=== PATIENT | male | born 1945 | race African-American/Black ===

== ENCOUNTER 2017-03-05 06:21 | Observation (INO) | payer MEDICARE ==
--- NOTE | 2017-03-02 01:52 | HP ---
CC: Dr. Jean Schwartz * HISTORY AND PHYSICAL: DATE OF PLANNED ADMISSION AND SURGERY: 03/05/17 HISTORY OF PRESENT ILLNESS: Mr. Sanchez is a 71-year-old male, who is admitted with prostate enlargement and urinary retention for transurethral resection of the prostate. Please refer to the full history and physical regarding his medical condition dictated by Dr. Schwartz, his primary care physician, and dated 02/22/17. Also, please refer to the Cardiology consultation by Dr. Dalton dated . Mr. Sanchez is a 71-year-old diabetic, whom I have been following for the last 7 years because of the prostate enlargement and bladder outlet obstruction. He has been maintained on finasteride and tamsulosin. More recently, he started having increasing voiding symptoms and developed recurrent urinary tract infections. Workup showed a urethral stricture in the bulbar urethra, and large obstructing prostate. Four days before this planned admission, he went into urinary retention and had a Suarez catheter placed draining 600 cc of clear urine. The patient has had urodynamic studies, which showed normal bladder capacity and a high voiding detrusor pressure consistent with bladder outlet obstruction and indicating good bladder function. Because of the above history and findings, the failure of medical treatment, and the urinary retention, he is admitted for transurethral resection of the prostate. PAST MEDICAL HISTORY AND SYSTEM REVIEW: Detailed in the notes of Dr. Schwartz and Dr. Dalton. The patient had a full cardiac workup including cardiac catheterization and showed patent saphenous venous grafts and good cardiac function. MEDICATIONS: The list of his medication is included in his history and physical. ALLERGIES: The patient has no allergies to medications. FAMILY HISTORY: Relevant for his brother who has prostate carcinoma and has developed castrate-resistant disease. PHYSICAL EXAMINATION GENERAL: Obese male who looks his age. VITAL SIGNS: Blood pressure 160/90, pulse of 60. LUNGS: Clear. HEART: Regular and rhythmic. No murmurs. ABDOMEN: Soft, obese. No masses, no tenderness, and no CVA tenderness. EXTERNAL GENITALIA: Normal. He is uncircumcised. No penile lesions. Normal testes and no hernias. RECTAL: Showed an enlarged but non-suspicious prostate. IMPRESSION: 1. Urinary retention due to prostate enlargement and urethral stricture, failed medical treatment. Normal detrusor function on urodynamics studies. 2. Diabetes mellitus. 3. Coronary artery disease. PLAN: For cystoscopy, internal urethrotomy, and transurethral resection of the prostate. I discussed the operation in detail with the patient. Some of the potential complications including infection, hematuria, recurrent retention, and recurrent strictures were discussed. All his questions were answered. The patient was started 4 days prior to his admission on Cipro in preparation for his surgery. Urine culture is pending. [id number]/[facility] #: [id number] ESTER
[~2017-03-05 06:21] MED LIST: Buffered Lidocaine 0.9% SYRIN* 5 ML/SYR SYRINGE INTRADERM ONE
[2017-03-05] MEDS ORDERED: cefTRIAXone(*) 2 GM ADDV.VIAL IVPB ONE (06:24)
[2017-03-05] MEDS ORDERED: Buffered Lidocaine 0.9% SYRIN* 5 ML/SYR SYRINGE ONE (06:46)
[2017-03-05] MEDS ORDERED: Insulin REGULAR(*) 1 UNITS UNIT ONE ×2 (07:21→09:35)
[2017-03-05] MEDS ORDERED: Levofloxacin 750 MG IVPREMIX(* 750 MG/150 ML BAG ONE (07:53)
[2017-03-05] MEDS ORDERED: fentaNYL* 50 MCG/ML 2 ML VIAL (100 MCG VIAL) ONE (08:04)
[2017-03-05] MEDS ORDERED: Midazolam* 1 MG/ML 5 ML VIAL (5 MG) ONE (08:04)
[2017-03-05] MEDS ORDERED: DiMENhydriNATE IV* 50 MG/ML VIAL IV PUSH PRN (08:56)
[2017-03-05] MEDS ORDERED: fentaNYL* 50 MCG/ML 2 ML VIAL (100 MCG VIAL) IV PRN (08:56)
[2017-03-05] MEDS ORDERED: Ondansetron INJ* 2 MG/ML VIAL IV PRN (08:56)
[2017-03-05] MEDS ORDERED: oxyCODONE/Acetamin 5/325 MG* TAB PO PRN (12:35)
[2017-03-05] MEDS ORDERED: Oxybutynin TAB* 5 MG PO PRN (12:36)
[2017-03-05] MEDS ORDERED: SULINDAC 200 MG PO PRN (12:49)
[2017-03-05] MEDS ORDERED: Nitroglycerin TAB 0.4 MG* 0.4 MG TAB SL PRN (12:51)
[2017-03-05] MEDS ORDERED: oxyCODONE SR TAB(*) 10 MG TAB.SR PO PRN (12:52)
[2017-03-05] MEDS: Insulin REGULAR(*) 1 UNITS UNIT SUBCUT SCH ×2 (17:35→20:52)
[2017-03-05] MEDS: metFORMIN* 500 MG TAB PO SCH (20:45)
[2017-03-05] MEDS: Lisinopril TAB* 10 MG PO SCH (20:45)
[2017-03-05] MEDS ORDERED: Atorvastatin* 20 MG TAB PO SCH (21:00)
[2017-03-05] MEDS: oxyCODONE/Acetamin 5/325 MG* TAB PO PRN (23:47)
[2017-03-06] MEDS ORDERED: Dextrose 50% Syringe 50 ML* 25 GM/50 ML SYRINGE IV PUSH PRN (00:04)
--- NOTE | 2017-03-06 05:35 | OP ---
CC: Dr. Schwartz* DATE OF OPERATION: 03/05/17 - ROOM #331 DATE OF : 47 SURGEON: Percy Urbina MD ANESTHESIOLOGIST: Adan Vicente MD ANESTHESIA: Spinal. PRE-OP DIAGNOSES: 1. Benign prostatic hyperplasia. 2. Urethral stricture. 3. Urinary retention due to above. POST-OP DIAGNOSES: 1. Benign prostatic hyperplasia. 2. Urethral stricture. 3. Urinary retention due to above. OPERATIVE PROCEDURE: 1. Cystoscopy. 2. Direct internal optic urethrotomy. 3. Transurethral resection of the prostate. INDICATIONS: Mr. Sanchez is a 71-year-old white male with long history of bladder outlet obstruction, who has been maintained on tamsulosin and finasteride. He has been becoming more symptomatic with increasing frequency, slow stream, and increased postvoid residual. Cystoscopy showed a bulbar urethral stricture and a large-obstructing prostate and bladder trabeculations. Urodynamic studies confirmed good detrusor function. The patient went into urinary retention last week, and has been on catheter drainage. He is now admitted for the above procedure. PATHOLOGY AT CYSTOSCOPY: The penile urethra looked normal. There was a stricture located in the bulbar urethra about 1 to 2 cm distal to the external sphincter. The prostate was large and obstructing. Most of the obstruction was from an elevated bladder neck and from a moderately enlarged median lobe. There were also obstructing lateral lobes. Examination of the bladder neck showed changes suggestive of cystitis glandularis. The ureteral orifices looked normal. Moderate diffuse trabeculations were seen. There were no suspicious bladder lesions seen. No calculi or diverticula. The prostate adenoma was moderately avascular. DESCRIPTION OF PROCEDURE: After successful spinal anesthesia, the patient was placed in the lithotomy position and was prepped and draped for cystoscopy. Cystoscopy was performed. The above findings were noted. The direct internal urethrotome was then introduced under direct vision inside the urethra. The bulbar stricture was divided at 12 o'clock allowing the introduction of the scope without difficulty inside the bladder. The Resectoscope was then introduced under direct vision inside the bladder. Mannitol- sorbitol solution was used for irrigation. The inflow and outflow were adjusted to avoid overdistention of the bladder. After identifying the ureteral orifices and confirming they are safely away from the bladder neck, the posterior bladder neck and median lobe were resected first between 4 o'clock and 8 o'clock. That allowed visualization of the trigone. The resectoscope was then positioned at the level of the verumontanum and the floor of the prostate was resected. The left lateral lobe was then resected starting at 4 o'clock and proceeding anteriorly. The right lobe was resected next. The roof and the apical tissues were resected last. The limits of the resection were the bladder neck proximally, the verumontanum distally, and the capsule circumferentially. The bleeders were electrocoagulated and controlled. At the completion of the resection, the prostatic urethra was wide open. There was no significant residual obstructing tissue. The verumontanum, the capsule, the bladder wall, and the orifices were all intact and there were no open sinuses. After irrigating out all the resected prostate chips and confirming that hemostasis was very good, the resectoscope was removed and a size 22-Gabonese Suarez catheter was passed inside the bladder and balloon inflated with 40 cc of water. The catheter was placed under gentle traction and taped to the right thigh of the patient. Irrigation yielded clear returns. The patient tolerated the procedure well and left the operating room in good condition. The blood loss was estimated at about 50 cc. The specimen was prostate chips. [id number]/[facility] #: [id number] ESTER
[2017-03-06] MEDS ORDERED: Levothyroxine TAB* 100 MCG TAB PO SCH (06:00)
[2017-03-06] MEDS ORDERED: Levothyroxine TAB* 25 MCG TAB PO SCH (06:00)
[2017-03-06] MEDS: oxyCODONE/Acetamin 5/325 MG* TAB PO PRN (07:26)
[2017-03-06 08:53] VITALS: BP 193/94
[2017-03-06] MEDS: Insulin REGULAR(*) 1 UNITS UNIT SUBCUT SCH (08:54)
[2017-03-06] MEDS: metFORMIN* 500 MG TAB PO SCH (08:55)
[2017-03-06] MEDS: Lisinopril TAB* 10 MG PO SCH (08:55)
[2017-03-06] MEDS ORDERED: Finasteride TAB* 5 MG PO SCH (09:00)
[2017-03-06] MEDS ORDERED: amLODIPine TAB* 5 MG PO SCH (09:00)
[2017-03-06] MEDS ORDERED: Metoprolol Succinate XL TAB* 200 MG TAB.XL PO SCH (09:00)
--- NOTE | 2017-03-06 10:30 | DS ---
DATE OF ADMISSION: 03/05/2017. DATE OF DISCHARGE: 03/06/2017. FINAL DIAGNOSES: 1. Benign prostatic hyperplasia. 2. Urinary retention due to above. 3. Coronary artery disease. 4. Hyperlipidemia. 5. Hypertension. 6. Diabetes mellitus. 7. Chronic back pain. OPERATION: Internal urethrotomy and transurethral resection of the prostate on 03/05/2017. HISTORY OF PRESENT ILLNESS: Mr. Sanchez is a 71-year-old white male who has a long history of bladder outlet obstruction caused by prostate enlargement. He also was noted to have a stricture in the bulbar urethra. He had been maintained on Tamsulosin and Finasteride. He had progressive worsening of his voiding symptoms and went into urinary retention four days prior to admission. He has been on catheter drainage. After obtaining medical and cardiac clearance, the patient was admitted for transurethral resection of the prostate. PAST MEDICAL HISTORY AND SYSTEM REVIEW: The patient is a type 2 diabetic on treatment, he has hypothyroidism. He has a history of coronary artery disease, hyperlipidemia, and hypertension. The patient was evaluated by Dr. Dalton, had cardiac catheterization and had a full cardiac clearance for the procedure. He also was evaluated by Dr. Schwartz and also cleared for the procedure. Their dictated notes are included in the patient's records. ALLERGIES: The patient has no allergies to medications. PREOPERATIVE PHYSICAL EXAMINATION: Included in the records. The rectal examination showed an enlarged, but nonsuspicious prostate. LABORATORY DATA: Preoperative lab work was within normal. The patient had a urine culture with a growth sensitive to Cipro and he has been on it preoperatively. HOSPITAL COURSE: The patient was admitted the morning of his surgery. He underwent an uncomplicated internal urethrotomy and transurethral resection of the prostate. He was observed overnight. By the morning, his urine was clear and had a very smooth postoperative course. The patient is being discharged home with a Suarez catheter and on all his preoperative medications with the exception of Tamsulosin and a baby aspirin. He will be seen in the office one week postoperatively for Suarez catheter removal. Instructions were given for follow-up care. The Pathology on the resected prostate tissue was benign. [id number]/[facility] #: [id number] MTDD
== END 2017-03-06 09:50 | disposition home or self-care (01) ==
LOC: OR 06:21 → SSU 12:06
PROVIDERS: ADMIT Urology; ATTEND Urology
PROC: 0TND8ZZ Release Urethra, Via Natural or Artificial Opening Endoscopic (ICD-10-PCS; 2017-03-05)
PROC: 0TJB8ZZ Inspection of Bladder, Via Natural or Artificial Opening Endoscopic (ICD-10-PCS; 2017-03-05)
PROC: 0VT08ZZ Resection of Prostate, Via Natural or Artificial Opening Endoscopic (ICD-10-PCS; principal; 2017-03-05 07:45)
DX: N40.1 Benign prostatic hyperplasia with lower urinary tract symptoms (principal); R33.8 Other retention of urine; N13.8 Other obstructive and reflux uropathy; N35.9 Urethral stricture, unspecified; I25.10 Atherosclerotic heart disease of native coronary artery without angina pectoris; I10 Essential (primary) hypertension; E78.5 Hyperlipidemia, unspecified; E11.9 Type 2 diabetes mellitus without complications; M54.9 Dorsalgia, unspecified; G89.29 Other chronic pain; E03.9 Hypothyroidism, unspecified; Z79.84 Long term (current) use of oral hypoglycemic drugs
CPT/HCPCS: 36415; 86803; 88305; 94760; A9270-GY; G0378; J0696; J2250; J3010

== ENCOUNTER 2021-01-09 11:57 | Inpatient (IN) ==
[2021-01-09] MEDS ORDERED: NS 0.9% 1000 ml BAG 1,000 ML IV ONE (12:23)
[2021-01-09 12:46] LABS: ABS Basophils 0.1 10^3/ul (0-0.2); ABS Eosinophils 0.1 10^3/ul (0-0.6); ABS Lymphocytes 1.3 10^3/ul (1.0-4.8); ABS Monocytes 1.2 10^3/ul (0-0.8); ABS Neutrophils 8.9 10^3/ul (1.5-7.7); Eosinophil % 0.9 %; Hematocrit 45 % (42-52); Hemoglobin 14.6 g/dL (14.0-18.0); Mean Corpuscular HGB Conc 32 g/dL (31-36); Mean Corpuscular Hemoglobin 27 pg (27-31); Mean Corpuscular Volume 83 fL (80-94); Mean Platelet Volume 10.1 fL (7.4-10.4); Nucleated Red Blood Cells % 0.1; Platelet Count 201 10^3/uL (150-450); Red Blood Count 5.44 10^6 /uL (4.18-5.48); Red Cell Distribution Width 15 % (10-15); White Blood Count 11.5 10^3/uL (3.5-10.8)
[2021-01-09 12:49] LABS: INR 1.24 (0.82-1.09)
[2021-01-09 13:09] LABS: ALT 30 U/L (7-52); Albumin 3.9 g/dL (3.2-5.2); Alkaline Phosphatase 72 U/L (34-104); Blood Urea Nitrogen 55 mg/dL (6-24); C Reactive Protein 89.04 mg/L (<8.01); CO2 Carbon Dioxide 19 mmol/L (22-32); Calcium 10.4 mg/dL (8.6-10.3); Chloride 108 mmol/L (101-111); Creatine Kinase 358 U/L (10-223); EGFR African American 37.7 (>60); EGFR Non-African American 31.2 (>60); Globulin 3.8 g/dL (2-4); Glucose 121 mg/dL (70-100); Sodium 145 mmol/L (135-145); Total Protein 7.7 g/dL (6.4-8.9)
[2021-01-09 13:22] LABS: Alcohol, S < 10 mg/dL (<10)
[2021-01-09 13:24] LABS: Troponin I 0.05 ng/mL (<0.03)
[2021-01-09 13:30] LABS: Anion Gap 18 mmol/L (2-11)
[2021-01-09 13:37] LABS: TSH Ultra Thyroid Stim Horm 0.07 mcIU/mL (0.34-5.60)
[2021-01-09 14:11] LABS: Urine Appearance Cloudy; Urine Bilirubin Negative (Negative); Urine Blood 2+ (Negative); Urine Color Amber; Urine Glucose Negative (Negative); Urine Ketones 1+ (Negative); Urine Nitrite Positive (Negative); Urine Protein 1+(30 mg/dL) (Negative); Urine Specific Gravity 1.015 (1.002-1.030); Urine Urobilinogen Negative (Negative)
[2021-01-09] MEDS ORDERED: cefTRIAXone 1 gm/50 mL NS BAG 1 GM/50 ML BAG IV ONE (14:12)
[2021-01-09 14:17] LABS: Urine Bacteria 3+ (Absent); Urine Red Blood Cell 2+(6-10/hpf) (Absent); Urine Squamous Epithelial Cell Present (Absent); Urine White Blood Cell 3+(>20/hpf) (Absent)
[2021-01-09 14:20] LABS: Magnesium 2.2 mg/dL (1.9-2.7)
[2021-01-09 14:39] LABS: Potassium Redraw 3.7 mmol/L (3.5-5.0)
[2021-01-09] MEDS ORDERED: Dextrose 50% Syringe 50 ml 25 GM/50 ML SYRINGE IV PUSH PRN (16:06)
[2021-01-09 16:20] LABS: Troponin I 0.03 ng/mL (<0.03)
[2021-01-09] MEDS: Lactated Ringers 1000 ml BAG 1,000 ML IV SCH (17:04)
[2021-01-09] MEDS: Heparin 5000 UNITS/ML 1 mL VIAL SUBCUT SCH (20:21)
[2021-01-10] MEDS: Lactated Ringers 1000 ml BAG 1,000 ML IV SCH ×2 (03:09→13:33)
[2021-01-10] MEDS: Heparin 5000 UNITS/ML 1 mL VIAL SUBCUT SCH ×3 (05:48→21:26)
[2021-01-10 07:19] LABS: Hematocrit 40 % (42-52); Hemoglobin 12.6 g/dL (14.0-18.0); Mean Corpuscular HGB Conc 31 g/dL (31-36); Mean Corpuscular Hemoglobin 27 pg (27-31); Mean Corpuscular Volume 85 fL (80-94); Mean Platelet Volume 9.7 fL (7.4-10.4); Platelet Count 150 10^3/uL (150-450); Red Blood Count 4.72 10^6 /uL (4.18-5.48); Red Cell Distribution Width 16 % (10-15); White Blood Count 7.4 10^3/uL (3.5-10.8)
[2021-01-10] MEDS: Aspirin EC 81 mg TAB.EC (enteric coated) PO SCH (07:36)
[2021-01-10 07:40] LABS: CO2 Carbon Dioxide 16 mmol/L (22-32); Sodium 140 mmol/L (135-145)
[2021-01-10 07:46] LABS: Blood Urea Nitrogen 47 mg/dL (6-24); EGFR African American 44.6 (>60); EGFR Non-African American 36.8 (>60); Glucose 124 mg/dL (70-100)
[2021-01-10 07:50] LABS: Anion Gap 10 mmol/L (2-11); Chloride 114 mmol/L (101-111)
[2021-01-10] MEDS: Nystatin TOP POWDER 15 GM BTL TOPICAL SCH ×2 (13:32→21:27)
[2021-01-10] MEDS ORDERED: Perflutren Lipid Microsphere 3 ML VIAL ONE (15:09)
[2021-01-10] MEDS: cefTRIAXone 1 gm/50 mL NS BAG 1 GM/50 ML BAG IVPB SCH (15:12)
[2021-01-11] MEDS: Heparin 5000 UNITS/ML 1 mL VIAL SUBCUT SCH ×3 (05:20→21:46)
[2021-01-11] MEDS: Aspirin EC 81 mg TAB.EC (enteric coated) PO SCH (09:03)
[2021-01-11] MEDS: Nystatin TOP POWDER 15 GM BTL TOPICAL SCH ×3 (09:05→21:47)
[2021-01-11] MEDS: cefTRIAXone 1 gm/50 mL NS BAG 1 GM/50 ML BAG IVPB SCH (16:26)
[2021-01-12] MEDS: Heparin 5000 UNITS/ML 1 mL VIAL SUBCUT SCH ×3 (05:40→22:09)
[2021-01-12] MEDS: Aspirin EC 81 mg TAB.EC (enteric coated) PO SCH (08:46)
[2021-01-12] MEDS: Nystatin TOP POWDER 15 GM BTL TOPICAL SCH ×3 (08:46→22:03)
[2021-01-12] MEDS ORDERED: Lidocaine PATCH 5% PATCH TRANSDERM PRN (14:50)
[2021-01-12] MEDS: cefTRIAXone 1 gm/50 mL NS BAG 1 GM/50 ML BAG IVPB SCH (15:56)
[2021-01-12] MEDS: Lidocaine Patch REMOVE PATCH PATCH OFF SCH (22:03)
[2021-01-13 05:16] LABS: ABS Eosinophils 0.2 10^3/ul (0-0.6); ABS Lymphocytes 1.5 10^3/ul (1.0-4.8); ABS Monocytes 0.8 10^3/ul (0-0.8); ABS Neutrophils 4.8 10^3/ul (1.5-7.7); Eosinophil % 2.9 %; Hematocrit 40 % (42-52); Hemoglobin 12.8 g/dL (14.0-18.0); Lymphocyte % 20.8 %; Mean Corpuscular HGB Conc 32 g/dL (31-36); Mean Corpuscular Hemoglobin 27 pg (27-31); Mean Corpuscular Volume 83 fL (80-94); Nucleated Red Blood Cells % 0.1; Platelet Count 187 10^3/uL (150-450); Red Blood Count 4.78 10^6 /uL (4.18-5.48); Red Cell Distribution Width 15 % (10-15); White Blood Count 7.4 10^3/uL (3.5-10.8)
[2021-01-13 05:30] LABS: Calcium 9.5 mg/dL (8.6-10.3); EGFR African American 58.5 (>60); EGFR Non-African American 48.3 (>60); Potassium 3.6 mmol/L (3.5-5.0)
[2021-01-13] MEDS: Heparin 5000 UNITS/ML 1 mL VIAL SUBCUT SCH ×3 (06:31→21:44)
[2021-01-13] MEDS: Aspirin EC 81 mg TAB.EC (enteric coated) PO SCH (09:46)
[2021-01-13] MEDS: Nystatin TOP POWDER 15 GM BTL TOPICAL SCH ×3 (13:46→22:50)
[2021-01-13] MEDS: cefTRIAXone 1 gm/50 mL NS BAG 1 GM/50 ML BAG IVPB SCH (15:15)
[2021-01-13] MEDS: Lidocaine Patch REMOVE PATCH PATCH OFF SCH (21:50)
[2021-01-14] MEDS: Heparin 5000 UNITS/ML 1 mL VIAL SUBCUT SCH (05:12)
[2021-01-14 09:47] LABS: Calcium 9.5 mg/dL (8.6-10.3); EGFR African American 48.9 (>60); EGFR Non-African American 40.4 (>60); Magnesium 1.9 mg/dL (1.9-2.7); Potassium 3.8 mmol/L (3.5-5.0)
[2021-01-14] MEDS: Nystatin TOP POWDER 15 GM BTL TOPICAL SCH ×3 (10:00→21:26)
[2021-01-14] MEDS: Aspirin EC 81 mg TAB.EC (enteric coated) PO SCH (10:40)
[2021-01-14] MEDS: cefTRIAXone 1 gm/50 mL NS BAG 1 GM/50 ML BAG IVPB SCH (17:18)
[2021-01-14] MEDS: Lidocaine Patch REMOVE PATCH PATCH OFF SCH (21:25)
[2021-01-15 05:18] LABS: ABS Eosinophils 0.2 10^3/ul (0-0.6); ABS Monocytes 0.9 10^3/ul (0-0.8); ABS Neutrophils 5.2 10^3/ul (1.5-7.7); Eosinophil % 2.1 %; Hematocrit 38 % (42-52); Hemoglobin 12.4 g/dL (14.0-18.0); Lymphocyte % 23.6 %; Mean Corpuscular HGB Conc 33 g/dL (31-36); Mean Corpuscular Hemoglobin 27 pg (27-31); Mean Corpuscular Volume 82 fL (80-94); Mean Platelet Volume 9.6 fL (7.4-10.4); Nucleated Red Blood Cells % 0.1; Platelet Count 182 10^3/uL (150-450); Red Blood Count 4.65 10^6 /uL (4.18-5.48); Red Cell Distribution Width 15 % (10-15); White Blood Count 8.3 10^3/uL (3.5-10.8)
[2021-01-15 05:33] LABS: Calcium 9.4 mg/dL (8.6-10.3); EGFR African American 47.9 (>60); EGFR Non-African American 39.6 (>60); Potassium 3.4 mmol/L (3.5-5.0)
[2021-01-15] MEDS ORDERED: Potassium Chlor 10 meq TAB PO ONE (06:12)
[2021-01-15] MEDS ORDERED: Potassium Chlor 20 meq TAB.ER PO ONE (06:25)
[2021-01-15] MEDS: Nystatin TOP POWDER 15 GM BTL TOPICAL SCH ×3 (10:18→22:00)
[2021-01-15] MEDS: cefTRIAXone 1 gm/50 mL NS BAG 1 GM/50 ML BAG IVPB SCH (16:43)
[2021-01-16] MEDS: Lidocaine Patch REMOVE PATCH PATCH OFF SCH ×2 (00:08→20:36)
[2021-01-16 05:44] LABS: Calcium 9.2 mg/dL (8.6-10.3); EGFR African American 51.4 (>60); EGFR Non-African American 42.5 (>60); Magnesium 1.7 mg/dL (1.9-2.7); Potassium 3.7 mmol/L (3.5-5.0)
[2021-01-16] MEDS ORDERED: Potassium Chlor 20 meq TAB.ER PO ONE (08:52)
[2021-01-16] MEDS ORDERED: Magnesium Sulfate 2 gm BAG 2 GM/50 ML BAG IVPB ONE (08:52)
[2021-01-16] MEDS: Nystatin TOP POWDER 15 GM BTL TOPICAL SCH ×3 (09:40→20:44)
[2021-01-17 09:57] LABS: Calcium 9.4 mg/dL (8.6-10.3); EGFR African American 52.5 (>60); EGFR Non-African American 43.4 (>60); Magnesium 1.9 mg/dL (1.9-2.7); Potassium 3.9 mmol/L (3.5-5.0)
[2021-01-17] MEDS: Nystatin TOP POWDER 15 GM BTL TOPICAL SCH ×2 (10:11→15:45)
[2021-01-17 13:25] VITALS: BP 117/55
== END 2021-01-17 17:30 | disposition home health service (06) ==
LOC: MED 11:57 → ED 11:57 → MEDTELE 01-10 18:29
PROVIDERS: ADMIT Hospitalist; ATTEND Internal Medicine

== ENCOUNTER 2021-09-27 17:13 | Inpatient (IN) ==
[2021-09-27 21:14] LABS: ABS Basophils 0.1 10^3/ul (0-0.2); ABS Eosinophils 0.1 10^3/ul (0-0.6); ABS Lymphocytes 1.9 10^3/ul (1.0-4.8); ABS Monocytes 0.6 10^3/ul (0-0.8); ABS Neutrophils 6.3 10^3/ul (1.5-7.7); Eosinophil % 0.7 %; Hematocrit 43 % (42-52); Lymphocyte % 21.6 %; Mean Corpuscular HGB Conc 33 g/dL (31-36); Mean Corpuscular Hemoglobin 27 pg (27-31); Mean Corpuscular Volume 83 fL (80-94); Mean Platelet Volume 9.4 fL (7.4-10.4); Platelet Count 139 10^3/uL (150-450); Red Blood Count 5.19 10^6 /uL (4.18-5.48); Red Cell Distribution Width 21 % (10-15)
[2021-09-27 21:16] LABS: Urine Appearance Turbid; Urine Bilirubin Negative (Negative); Urine Blood 2+ (Negative); Urine Color Amber; Urine Glucose Negative (Negative); Urine Ketones Negative (Negative); Urine Nitrite Negative (Negative); Urine Protein 2+(100 mg/dL) (Negative); Urine Specific Gravity 1.016 (1.002-1.030); Urine Urobilinogen Negative (Negative)
[2021-09-27 21:30] LABS: Urine Bacteria 2+ (Absent); Urine Red Blood Cell 3+(>10/hpf) (Absent); Urine Squamous Epithelial Cell Present (Absent); Urine White Blood Cell Trace(0-5/hpf) (Absent)
[2021-09-27 21:31] LABS: Albumin 4.2 g/dL (3.2-5.2); Albumin/Globulin Ratio 1.4 (1-3); C Reactive Protein 2.08 mg/L (<8.01); Calcium 9.8 mg/dL (8.6-10.3); Globulin 3.1 g/dL (2-4); Potassium 3.8 mmol/L (3.5-5.0); Total Bilirubin 0.9 mg/dL (0.2-1.0); Total Protein 7.3 g/dL (6.4-8.9); eGFR CKD-EPI 32.8 (>60)
[2021-09-27 21:32] LABS: Troponin I 0.01 ng/mL (<0.03)
[2021-09-27 21:34] LABS: Activated Partial Thrombo Time 37.2 seconds (26.0-38.0); INR 1.17 (0.86-1.15)
[2021-09-27] MEDS ORDERED: cefTRIAXone 1 gm/50 mL NS BAG 1 GM/50 ML BAG IV ONE (22:01)
[2021-09-27] MEDS ORDERED: Lactated Ringers 1000 ml BAG 1,000 ML IV ONE (22:10)
[2021-09-27] MEDS ORDERED: Dextrose 50% Syringe 50 ml 25 GM/50 ML SYRINGE IV PUSH PRN (23:03)
[2021-09-27] MEDS ORDERED: NS 0.9% 1000 ml BAG 1,000 ML IV SCH (23:15)
[2021-09-28 03:30] LABS: TSH Ultra Thyroid Stim Horm 96.22 mcIU/mL (0.34-5.60)
[2021-09-28 07:12] LABS: Calcium 9.4 mg/dL (8.6-10.3); Potassium 3.6 mmol/L (3.5-5.0); eGFR CKD-EPI 33.4 (>60)
[2021-09-28] MEDS: Potassium Chlor 20 meq TAB.ER PO SCH (07:47)
[2021-09-28] MEDS: Aspirin EC 81 mg TAB.EC (enteric coated) PO SCH (07:47)
[2021-09-28 09:37] LABS: Free T4 < 0.25 ng/dL (0.61-1.12)
[2021-09-28] MEDS ORDERED: cefTRIAXone 1 gm/50 mL NS BAG 1 GM/50 ML BAG IVPB SCH (21:00)
[2021-09-28 21:21] LABS: Calcium 9.3 mg/dL (8.6-10.3); Potassium 3.8 mmol/L (3.5-5.0); eGFR CKD-EPI 32.6 (>60)
[2021-09-29 05:12] LABS: ABS Eosinophils 0.1 10^3/ul (0-0.6); ABS Lymphocytes 1.5 10^3/ul (1.0-4.8); ABS Monocytes 0.4 10^3/ul (0-0.8); ABS Neutrophils 4.2 10^3/ul (1.5-7.7); Hematocrit 38 % (42-52); Hemoglobin 12.5 g/dL (14.0-18.0); Lymphocyte % 24.2 %; Mean Corpuscular HGB Conc 33 g/dL (31-36); Mean Corpuscular Hemoglobin 27 pg (27-31); Mean Corpuscular Volume 83 fL (80-94); Mean Platelet Volume 9.5 fL (7.4-10.4); Platelet Count 131 10^3/uL (150-450); Red Blood Count 4.61 10^6 /uL (4.18-5.48); Red Cell Distribution Width 21 % (10-15); White Blood Count 6.3 10^3/uL (3.5-10.8)
[2021-09-29] MEDS: Potassium Chlor 20 meq TAB.ER PO SCH (09:28)
[2021-09-29] MEDS: Aspirin EC 81 mg TAB.EC (enteric coated) PO SCH (09:28)
[2021-09-29] MEDS ORDERED: Flu vaccine *QUAD* 2021-22* 0.5 ML SYRINGE IM ONE (16:00)
[2021-09-29] MEDS: Senna TAB 8.6 mg TAB PO PRN (20:52)
[2021-09-29] MEDS: Polyethylene Glycol 3350 17 GM PACKET PO PRN (20:54)
[2021-09-30 07:52] LABS: Calcium 9.8 mg/dL (8.6-10.3); Magnesium 1.6 mg/dL (1.9-2.7); Potassium 4.6 mmol/L (3.5-5.0)
[2021-09-30] MEDS ORDERED: Magnesium Sulf 4 GM/100 ML IV 4,000 MG/100 ML BAG IVPB ONE (07:54)
[2021-09-30] MEDS: Polyethylene Glycol 3350 17 GM PACKET PO PRN (08:58)
[2021-09-30] MEDS: Aspirin EC 81 mg TAB.EC (enteric coated) PO SCH (08:58)
[2021-09-30] MEDS: Potassium Chlor 20 meq TAB.ER PO SCH (08:59)
[2021-09-30] MEDS ORDERED: Flu vaccine *QUAD* 2021-22* 0.5 ML SYRINGE IM ONE (09:00)
[2021-10-01] MEDS ORDERED: Magnesium Sulfate IV 3 GM in NS 0.9% 100 ml BAG 100 ML IVPB ONE (07:03)
[2021-10-01] MEDS ORDERED: Lactated Ringers 500 ml BAG 500 ML IV ONE (10:06)
[2021-10-01] MEDS: Potassium Chlor 20 meq TAB.ER PO SCH (10:32)
[2021-10-01 15:17] LABS: ABS Eosinophils 0.1 10^3/ul (0-0.6); ABS Lymphocytes 1.5 10^3/ul (1.0-4.8); ABS Monocytes 0.5 10^3/ul (0-0.8); ABS Neutrophils 4.2 10^3/ul (1.5-7.7); Eosinophil % 1.5 %; Hematocrit 39 % (42-52); Hemoglobin 12.9 g/dL (14.0-18.0); Lymphocyte % 23.9 %; Mean Corpuscular HGB Conc 33 g/dL (31-36); Mean Corpuscular Hemoglobin 27 pg (27-31); Mean Corpuscular Volume 83 fL (80-94); Mean Platelet Volume 9.5 fL (7.4-10.4); Nucleated Red Blood Cells % 0.1; Platelet Count 135 10^3/uL (150-450); Red Blood Count 4.73 10^6 /uL (4.18-5.48); Red Cell Distribution Width 21 % (10-15); White Blood Count 6.4 10^3/uL (3.5-10.8)
[2021-10-01 15:44] LABS: Calcium 10.1 mg/dL (8.6-10.3); Potassium 4.6 mmol/L (3.5-5.0); eGFR CKD-EPI 31.3 (>60)
[2021-10-01] MEDS: Senna TAB 8.6 mg TAB PO PRN (21:59)
[2021-10-02 05:22] LABS: ABS Eosinophils 0.1 10^3/ul (0-0.6); ABS Lymphocytes 1.2 10^3/ul (1.0-4.8); ABS Monocytes 0.6 10^3/ul (0-0.8); ABS Neutrophils 4.2 10^3/ul (1.5-7.7); Eosinophil % 1.7 %; Hematocrit 40 % (42-52); Hemoglobin 13.1 g/dL (14.0-18.0); Lymphocyte % 20.1 %; Mean Corpuscular HGB Conc 33 g/dL (31-36); Mean Corpuscular Hemoglobin 27 pg (27-31); Mean Corpuscular Volume 83 fL (80-94); Mean Platelet Volume 9.5 fL (7.4-10.4); Nucleated Red Blood Cells % 0.1; Platelet Count 137 10^3/uL (150-450); Red Cell Distribution Width 21 % (10-15); White Blood Count 6.2 10^3/uL (3.5-10.8)
[2021-10-02 05:37] LABS: Calcium 9.9 mg/dL (8.6-10.3); Potassium 3.7 mmol/L (3.5-5.0); eGFR CKD-EPI 33.4 (>60)
[2021-10-02] MEDS: Potassium Chlor 20 meq TAB.ER PO SCH (08:51)
[2021-10-02] MEDS ORDERED: Lactated Ringers 500 ml BAG 500 ML IV SCH (12:00)
[2021-10-02 13:00] LABS: Urine Appearance Turbid; Urine Specific Gravity 1.017 (1.002-1.030)
[2021-10-02 13:01] LABS: Urine Color Red
[2021-10-02 13:27] LABS: Urine Red Blood Cell 3+(>10/hpf) (Absent); Urine White Blood Cell 1+(6-10/hpf) (Absent)
[2021-10-02 13:28] LABS: Urine Sperm Present (Absent); Urine Squamous Epithelial Cell Present (Absent)
[2021-10-03 05:53] LABS: ABS Eosinophils 0.1 10^3/ul (0-0.6); ABS Lymphocytes 1.4 10^3/ul (1.0-4.8); ABS Monocytes 0.6 10^3/ul (0-0.8); ABS Neutrophils 4.4 10^3/ul (1.5-7.7); Eosinophil % 1.4 %; Hematocrit 37 % (42-52); Hemoglobin 12.4 g/dL (14.0-18.0); Lymphocyte % 21.4 %; Mean Corpuscular HGB Conc 33 g/dL (31-36); Mean Corpuscular Hemoglobin 28 pg (27-31); Mean Corpuscular Volume 83 fL (80-94); Mean Platelet Volume 9.7 fL (7.4-10.4); Nucleated Red Blood Cells % 0.1; Platelet Count 135 10^3/uL (150-450); Red Cell Distribution Width 21 % (10-15); White Blood Count 6.5 10^3/uL (3.5-10.8)
[2021-10-03 06:09] LABS: Calcium 10.3 mg/dL (8.6-10.3); Magnesium 1.8 mg/dL (1.9-2.7); Potassium 3.9 mmol/L (3.5-5.0); eGFR CKD-EPI 33.4 (>60)
[2021-10-03] MEDS ORDERED: Magnesium Sulfate 2 gm BAG 2 GM/50 ML BAG IVPB ONE (08:24)
[2021-10-03 09:13] LABS: C Reactive Protein 2.32 mg/L (<8.01)
[2021-10-03] MEDS: Polyethylene Glycol 3350 17 GM PACKET PO PRN (09:19)
[2021-10-03] MEDS: Potassium Chlor 20 meq TAB.ER PO SCH (09:19)
[2021-10-03 10:26] LABS: PCO2 Arterial 38 mmHg (35-45); PO2 Arterial 81 mmHg (80-100)
[2021-10-03] MEDS: cefTRIAXone 1 gm/50 mL NS BAG 1 GM/50 ML BAG IVPB SCH (11:12)
[2021-10-04 06:35] LABS: ABS Eosinophils 0.1 10^3/ul (0-0.6); ABS Lymphocytes 1.5 10^3/ul (1.0-4.8); ABS Monocytes 0.5 10^3/ul (0-0.8); ABS Neutrophils 3.6 10^3/ul (1.5-7.7); Hematocrit 37 % (42-52); Lymphocyte % 25.8 %; Mean Corpuscular HGB Conc 32 g/dL (31-36); Mean Corpuscular Hemoglobin 27 pg (27-31); Mean Corpuscular Volume 84 fL (80-94); Mean Platelet Volume 9.6 fL (7.4-10.4); Nucleated Red Blood Cells % 0.1; Platelet Count 138 10^3/uL (150-450); Red Blood Count 4.43 10^6 /uL (4.18-5.48); Red Cell Distribution Width 21 % (10-15); White Blood Count 5.7 10^3/uL (3.5-10.8)
[2021-10-04 06:58] LABS: Calcium 10.2 mg/dL (8.6-10.3); Magnesium 2.1 mg/dL (1.9-2.7); Potassium 4.1 mmol/L (3.5-5.0); eGFR CKD-EPI 36.1 (>60)
[2021-10-04] MEDS ORDERED: Lactated Ringers 1000 ml BAG 1,000 ML IV SCH (08:00)
[2021-10-04] MEDS: Polyethylene Glycol 3350 17 GM PACKET PO PRN (08:15)
[2021-10-04] MEDS: Potassium Chlor 20 meq TAB.ER PO SCH (08:15)
[2021-10-04] MEDS: cefTRIAXone 1 gm/50 mL NS BAG 1 GM/50 ML BAG IVPB SCH (08:17)
[2021-10-04] MEDS: Senna TAB 8.6 mg TAB PO PRN (18:39)
[2021-10-05 06:22] LABS: Hematocrit 37 % (42-52); Mean Corpuscular HGB Conc 33 g/dL (31-36); Mean Corpuscular Hemoglobin 28 pg (27-31); Mean Corpuscular Volume 84 fL (80-94); Mean Platelet Volume 9.5 fL (7.4-10.4); Platelet Count 134 10^3/uL (150-450); Red Blood Count 4.35 10^6 /uL (4.18-5.48); Red Cell Distribution Width 21 % (10-15); White Blood Count 5.6 10^3/uL (3.5-10.8)
[2021-10-05 06:27] LABS: ABS Eosinophils 0.1 10^3/ul (0-0.6); ABS Lymphocytes 1.5 10^3/ul (1.0-4.8); ABS Monocytes 0.6 10^3/ul (0-0.8); ABS Neutrophils 3.4 10^3/ul (1.5-7.7); Eosinophil % 2.1 %; Lymphocyte % 26.6 %; Nucleated Red Blood Cells % 0.1
[2021-10-05 06:42] LABS: Calcium 10.2 mg/dL (8.6-10.3); Potassium 4.1 mmol/L (3.5-5.0); eGFR CKD-EPI 37.3 (>60)
[2021-10-05] MEDS: Potassium Chlor 20 meq TAB.ER PO SCH (08:09)
[2021-10-05] MEDS: cefTRIAXone 1 gm/50 mL NS BAG 1 GM/50 ML BAG IVPB SCH (10:23)
[2021-10-06 05:38] LABS: Hematocrit 36 % (42-52); Hemoglobin 11.7 g/dL (14.0-18.0); Mean Corpuscular HGB Conc 32 g/dL (31-36); Mean Corpuscular Hemoglobin 27 pg (27-31); Mean Corpuscular Volume 85 fL (80-94); Mean Platelet Volume 9.1 fL (7.4-10.4); Platelet Count 134 10^3/uL (150-450); Red Blood Count 4.27 10^6 /uL (4.18-5.48); Red Cell Distribution Width 21 % (10-15); White Blood Count 5.6 10^3/uL (3.5-10.8)
[2021-10-06 06:00] LABS: Calcium 10.2 mg/dL (8.6-10.3); Magnesium 1.9 mg/dL (1.9-2.7); Potassium 4.1 mmol/L (3.5-5.0)
[2021-10-06] MEDS: Potassium Chlor 20 meq TAB.ER PO SCH (08:49)
[2021-10-06] MEDS: cefTRIAXone 1 gm/50 mL NS BAG 1 GM/50 ML BAG IVPB SCH (10:20)
[2021-10-06 11:43] VITALS: BP 133/90
[2021-10-06 13:42] LABS: Rapid COVID-19 Molecular Undetected (Undetected)
== END 2021-10-06 14:40 | DRG 696 ==
LOC: EDHOLD 17:13 → ED 17:13 → SUATTDRO 23:03 → OBSVTOIN 23:03 → SSU 09-28 03:32 → SUATTDRO 09-28 03:40 → SSU 09-28 03:41
PROVIDERS: ADMIT Hospitalist; ATTEND Internal Medicine

== ENCOUNTER 2023-10-03 08:07 | Observation (INO) ==
[2023-10-03 09:18] LABS: ABS Lymphocytes 0.3 10^3/uL (1.0-4.8); ABS Monocytes 0.3 10^3/uL (0.0-1.1); ABS Neutrophils 17.9 10^3/uL (1.5-7.6); Hematocrit 38.8 % (38-53); Hemoglobin 12.4 g/dL (13.2-16.3); Lymphocyte % 1.6 %; Mean Corpuscular Hemoglobin 26.7 pg (27-33); Mean Corpuscular Hgb Conc 31.9 g/dL (31-36); Mean Corpuscular Volume 83.7 fL (80-97); Mean Platelet Volume 9.9 fL (7.5-11.2); Platelet Count 118 10^3/uL (150-450); Red Blood Count 4.63 10^6/uL (4.06-5.63); Red Cell Distribution Width 15.2 % (12-17); White Blood Count 18.6 10^3/uL (3.6-10.2)
[2023-10-03 09:32] LABS: Albumin 3.5 g/dL (3.2-5.2); Albumin/Globulin Ratio 1.1 (1-3); Calcium 8.7 mg/dL (8.6-10.3); Creatinine, Serum 2.88 mg/dL (0.67-1.17); Globulin 3.2 g/dL (2-4); Magnesium 1.4 mg/dL (1.9-2.7); Potassium 3.9 mmol/L (3.5-5.0); Total Bilirubin 0.7 mg/dL (0.2-1.0); Total Protein 6.7 g/dL (6.4-8.9); eGFR CKD-EPI 21.8 (>60)
[2023-10-03] MEDS: cefTRIAXone 1 gm/50 mL D5W 1 GM/50 ML BAG IV ONE (10:23)
[2023-10-03] MEDS: Lactated Ringers 1000 ml BAG 1,000 ML IV ONE (10:54)
[2023-10-03 11:11] LABS: Urine Appearance Turbid; Urine Bacteria Absent (Absent); Urine Bilirubin Negative (Negative); Urine Blood 2+ (Negative); Urine Glucose Negative (Negative); Urine Ketones Negative (Negative); Urine Nitrite Negative (Negative); Urine Protein 2+(100 mg/dL) (Negative); Urine Red Blood Cell 3+(>10/hpf) (Absent); Urine Specific Gravity 1.013 (1.002-1.030); Urine Squamous Epithelial Cell Present (Absent); Urine Urobilinogen Negative (Negative); Urine White Blood Cell 3+(>20/hpf) (Absent)
[2023-10-03 11:13] LABS: Urine Color Brown
[2023-10-03] MEDS: Magnesium Sulfate 2 gm BAG 2 GM/50 ML BAG IVPB ONE (11:51)
[2023-10-03] MEDS ORDERED: Dextrose 50% Syringe 50 ml 25 GM/50 ML SYRINGE IV PUSH PRN (16:22)
[2023-10-03 16:32] LABS: Hematocrit 34.6 % (38-53); Hemoglobin 11.1 g/dL (13.2-16.3)
[2023-10-03 17:00] LABS: Urine Appearance Turbid; Urine Bacteria 1+ (Absent); Urine Bilirubin Negative (Negative); Urine Blood 3+ (Negative); Urine Glucose Negative (Negative); Urine Ketones Negative (Negative); Urine Nitrite Negative (Negative); Urine Protein 1+(30 mg/dL) (Negative); Urine Red Blood Cell 3+(>10/hpf) (Absent); Urine Specific Gravity 1.012 (1.002-1.030); Urine Squamous Epithelial Cell Present (Absent); Urine Urobilinogen Negative (Negative); Urine White Blood Cell 3+(>20/hpf) (Absent)
[2023-10-03 17:10] LABS: Urine Color Amber
[2023-10-03 22:32] LABS: Hematocrit 33.4 % (38-53); Hemoglobin 10.8 g/dL (13.2-16.3)
[2023-10-04 06:07] LABS: Hematocrit 35.1 % (38-53); Hemoglobin 11.2 g/dL (13.2-16.3); Mean Corpuscular Hemoglobin 26.4 pg (27-33); Mean Corpuscular Hgb Conc 31.8 g/dL (31-36); Mean Corpuscular Volume 83.1 fL (80-97); Red Blood Count 4.23 10^6/uL (4.06-5.63); Red Cell Distribution Width 15.5 % (12-17); White Blood Count 20.3 10^3/uL (3.6-10.2)
[2023-10-04 06:19] LABS: Calcium 8.5 mg/dL (8.6-10.3); Creatinine, Serum 2.55 mg/dL (0.67-1.17); Magnesium 1.9 mg/dL (1.9-2.7); Potassium 3.5 mmol/L (3.5-5.0); eGFR CKD-EPI 25.2 (>60)
[2023-10-04 06:43] LABS: ABS Basophils 0.1 10^3/uL (0.0-0.1); ABS Eosinophils 0.2 10^3/uL (0.0-0.5); ABS Lymphocytes 1.1 10^3/uL (1.0-4.8); ABS Monocytes 1.6 10^3/uL (0.0-1.1); ABS Neutrophils 17.3 10^3/uL (1.5-7.6); ABS Nucleated RBC 0.01 10^3/ul; Eosinophil % 1.1 %; Lymphocyte % 5.6 %; Mean Platelet Volume 10.3 fL (7.5-11.2); Platelet Count 76 10^3/uL (150-450)
[2023-10-04] MEDS: cefTRIAXone 1 gm/50 mL D5W 1 GM/50 ML BAG IV SCH (13:14)
[2023-10-04] MEDS: Lactated Ringers 1000 ml BAG 1,000 ML IV SCH (20:27)
[2023-10-04] MEDS: fentaNYL 100 mcg/2 ml 50 MCG/ML VIAL IV SLOW PU ONE (20:51)
[2023-10-05] MEDS: fentaNYL 100 mcg/2 ml 50 MCG/ML VIAL IV SLOW PU ONE (03:11)
[2023-10-05 06:30] LABS: Calcium 8.2 mg/dL (8.6-10.3); Creatinine, Serum 1.85 mg/dL (0.67-1.17); Potassium 3.7 mmol/L (3.5-5.0); eGFR CKD-EPI 37.1 (>60)
[2023-10-05 06:42] LABS: ABS Basophils 0.1 10^3/uL (0.0-0.1); ABS Eosinophils 0.3 10^3/uL (0.0-0.5); ABS Lymphocytes 1.2 10^3/uL (1.0-4.8); ABS Monocytes 1.4 10^3/uL (0.0-1.1); ABS Neutrophils 12.8 10^3/uL (1.5-7.6); Eosinophil % 1.9 %; Hematocrit 34.1 % (38-53); Hemoglobin 10.9 g/dL (13.2-16.3); Lymphocyte % 7.6 %; Mean Corpuscular Hemoglobin 26.6 pg (27-33); Mean Corpuscular Hgb Conc 31.9 g/dL (31-36); Mean Corpuscular Volume 83.2 fL (80-97); Mean Platelet Volume 10.3 fL (7.5-11.2); Platelet Count 74 10^3/uL (150-450); Red Cell Distribution Width 15.4 % (12-17); White Blood Count 15.8 10^3/uL (3.6-10.2)
[2023-10-05] MEDS ORDERED: Magnesium Hydroxide LIQ 30 ML UDC PO PRN (09:57)
[2023-10-05] MEDS ORDERED: Senna TAB 8.6 mg TAB PO PRN (09:57)
[2023-10-05 14:54] VITALS: BP 137/69
== END 2023-10-05 15:50 | disposition home or self-care (01) ==
LOC: ED 08:07 → EDHOLD 08:07 → MEDTELE 15:59
PROVIDERS: ADMIT Hospitalist; ATTEND Hospitalist